=== PATIENT | female | born 1960 | race Caucasian/White ===

== ENCOUNTER 2019-05-10 13:51 | Emergency (ER) | payer MEDICAID, OTHER ==
[~2019-05-10] VITALS: Ht 162.6 cm; Wt 60.3 kg
[2019-05-10] MEDS ORDERED: KETOROLAC 30 MG/1 ML ONE (14:20)
[2019-05-10] MEDS ORDERED: OXYcodone/APAP 5/325MG TABLET ONE (14:20)
[2019-05-10] MEDS ORDERED: DIAZEPAM 5 MG TABLET ONE ×2 (14:20→15:22)
[2019-05-10] MEDS ORDERED: KETOROLAC 30 MG/1 ML IM ONE (14:30)
[2019-05-10] MEDS ORDERED: DIAZEPAM 5 MG TABLET PO ONE ×2 (14:30→15:30)
[2019-05-10] MEDS ORDERED: OXYcodone/APAP 5/325MG TABLET PO ONE (14:30)
[2019-05-10 15:36] VITALS: BP 121/52
== END 2019-05-10 15:38 | disposition home or self-care (01) ==
LOC: ED 15:11
DX: G89.29 Other chronic pain (principal); M54.2 Cervicalgia
CPT/HCPCS: 72050; 72072; 96372; 99284; J1885